=== PATIENT | female | born 1960 ===

== ENCOUNTER 2018-11-22 15:11 | Inpatient (IN) | payer SELFPAY ==
[2018-11-22 15:18] VITALS: BP 143/60; PULSE 89; RESP 16; TEMP 36.6; O2SAT 97; BMI 30.9
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
[2018-11-22 15:45] LABS: Add Manual Diff / Slide Review NO; Basophils Absolute Auto 0 /uL (0-100); Basophils Percent Auto 0.2 % (0-2); Eosinophils Absolute Auto 200 /uL (0-450); Eosinophils Percent Auto 1.5 % (2-4); Hematocrit 37.5 % (36-46); Hemoglobin 12.2 g/dL (12.0-16.0); Lymphocytes Absolute Auto 2400 /uL (1100-4500); Lymphocytes Percent Auto 19.5 % (25-40); Mean Corpuscular HGB Conc 32.7 % (30-36); Mean Corpuscular Hemoglobin 28.2 PG (26-34); Mean Corpuscular Volume 86.4 fL (80-100); Monocytes Absolute Auto 1000 /uL (0-900); Monocytes Percent Auto 8.4 % (3-14); Neutrophils Absolute Auto 8500 /uL (1500-7000); Neutrophils Percent Auto 70.4 % (50-75); Platelet Count 236 X10^3/uL (150-400); Red Blood Cell Count 4.34 X10^6/uL (4.0-5.2); Red Cell Distribution Width 12.4 % (11.6-14.8); White Blood Cell Count 12.1 X10^3/uL (4.5-11.0)
[2018-11-22 16:00] VITALS: BP 153/75; PULSE 75; RESP 18; TEMP 36.6
[2018-11-22 16:00] LABS: Blood Urea Nitrogen 12 mg/dL (7-17); C-Reactive Protein Quant 5.8 mg/dL (<1.0); Calcium 9.1 mg/dL (8.4-10.2); Carbon Dioxide 26 mmol/L (22-32); Chloride 100 mmol/L (98-107); Estimated Glomerular Filt Rate > 60.0 mL/min (>60); Glucose 104 mg/dL (80-110); HEMOLYSIS 24 (0-50); Potassium 3.5 mmol/L (3.4-5.1); Sodium 137 mmol/L (137-145)
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
[2018-11-22] MEDS: AMPICILLIN/SULBACTAM 3 GM 3 GM in SODIUM CHLORIDE 0.9% 100 ML IV ×2 (16:04→22:05)
[2018-11-22 16:05] LABS: Erythrocyte Sedimentation Rate 78 MM/HR (0-20)
[2018-11-22 16:40] VITALS: BMI 30.2
[2018-11-22] MEDS: HYDROCODONE/ACET 5/325 TABLET 1 TAB PO ×2 (16:53→22:05)
[2018-11-22] MEDS: DEXTROSE 5%-0.9% NS 1,000 ML 60 ML IV (17:13)
[2018-11-22] MEDS: HYDROMORPHONE 0.5 MG INJ IV ×2 (17:17→22:55)
[2018-11-22 18:12] VITALS: O2SAT 98
[2018-11-22 20:01] VITALS: BP 135/69; PULSE 72; RESP 16; TEMP 36.6; O2SAT 96
[2018-11-22] MEDS: ONDANSETRON 4 MG/2 ML INJ IV (20:13)
[2018-11-22 23:30] VITALS: BP 133/74; PULSE 73; RESP 17; TEMP 36.9; O2SAT 96
[2018-11-22 23:37] VITALS: O2SAT 95
[2018-11-23] VITALS (16 sets, daily range): BP systolic 96–150; BP diastolic 42–77; PULSE 68–90; RESP 16–20; TEMP 36.7–38.2; O2SAT 93–98; BMI 30.2
[2018-11-23] MEDS: ONDANSETRON 4 MG/2 ML INJ IV ×2 (02:14→08:39)
[2018-11-23] MEDS: AMPICILLIN/SULBACTAM 3 GM 3 GM in SODIUM CHLORIDE 0.9% 100 ML IV ×3 (04:08→18:20)
[2018-11-23] MEDS: HYDROCODONE/ACET 5/325 TABLET 1 TAB PO (04:09)
[2018-11-23 05:37] LABS: Add Manual Diff / Slide Review NO; Basophils Absolute Auto 0 /uL (0-100); Basophils Percent Auto 0.3 % (0-2); Eosinophils Absolute Auto 100 /uL (0-450); Eosinophils Percent Auto 1.3 % (2-4); Hematocrit 33.9 % (36-46); Hemoglobin 11.1 g/dL (12.0-16.0); Lymphocytes Absolute Auto 1800 /uL (1100-4500); Lymphocytes Percent Auto 16.8 % (25-40); Mean Corpuscular HGB Conc 32.6 % (30-36); Mean Corpuscular Hemoglobin 28.2 PG (26-34); Mean Corpuscular Volume 86.5 fL (80-100); Monocytes Absolute Auto 900 /uL (0-900); Monocytes Percent Auto 7.9 % (3-14); Neutrophils Absolute Auto 7900 /uL (1500-7000); Neutrophils Percent Auto 73.7 % (50-75); Platelet Count 220 X10^3/uL (150-400); Red Blood Cell Count 3.92 X10^6/uL (4.0-5.2); Red Cell Distribution Width 12.6 % (11.6-14.8); White Blood Cell Count 10.7 X10^3/uL (4.5-11.0)
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
[2018-11-23] MEDS: HYDROMORPHONE 0.5 MG INJ IV ×2 (08:04→14:58)
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
--- NOTE | 2018-11-23 17:09 | PC.NURSE ---
Addendum entered by Payal Lynch R.N. 11/23/18 22:54: 2145 - SBA to bathroom. Pt reports mild lightheadedness with standing. Reinforced safety. Steady gait. Positioned for comfort. Right hand elevated on pillow. Ice pack in place. Snack provided. Pt denies nausea. Pt reports pain 9 of 10. Apap and percolone given as ordered. Call light in reach of left hand. Bed alarm on. Addendum entered by Payal Lynch R.N. 11/23/18 21:39: 1945 - Pt returned to room from PACU. Drowsy but appropriate. Drsg CDI. Hand elevated on pillow, Ice pack in place. Pt denies pain at this time. Reinforced call light use. Call light in reach of left hand. Original Note: 1630 - Pt daughter called to check pt status. Pt gave verbal permission for me to speak to her daughter. Reviewed treatment plan and transferred call to care management for further clarification on forms provided to pt. 1700 - OR staff here to transport pt. Pt alert, requests to take phone with her, rings taped. IV s.l. 1600 IV abx sent with OR staff. Call placed to Pt daughter notifying her of transport to pre-op area per request.
[2018-11-23] MEDS: LACTATED RINGERS 1,000 ML 42 ML IV (17:30)
--- NOTE | 2018-11-23 18:13 | PM.PREOP ---
Pre-operative Note Interval Note History & Physical reviewed/Exam performed by Physician: Yes Changes to H&P: No
[2018-11-23] MEDS: BUPIVACAINE 0.25% W/ EPI (PF) 10 ML VIAL INJ (18:45)
--- NOTE | 2018-11-23 18:54 | PM.OP.1 ---
Operative Date/Time/Diagnoses Date of procedure: 11/23/18 Time of procedure: 18:15 Pre-op diagnosis: Right middle finger infection Post-op diagnosis: same Procedure & Clinicians Procedure: Irrigation and debridement of the right middle finger Same procedure as scheduled: Yes Indications: Right middle finger infection Surgeon: Héctor Steele Click Yes if Unassisted: Yes Anesthesia Type: General Operative Notes Findings: Significant purulence involving the dorsal aspect of the right middle finger. No sign of any joint involvement. No sign of any bony reaction. Purulence was superficial to the extensor mechanism. Closure Type: primary Specimen(s): other (Fluid sent for Gram stain as well as cultures and sensitivity) Estimated Blood Loss (mL): 0 Blood products transfused: none Tourniquet time (min): 20 Procedure in detail: On date of service, patient was met in the holding area where the operative site was signed and witnessed by the OR staff. Surgeries once again discussed with the patient in remaining questions concerns she had were answered fully. Patient was taken back to the operating theater and placed on the operating table in a supine position. Time-out was performed verifying patient's name procedure and operative site. Great care was taken to ensure that all bony prominences were properly padded and a well-padded tourniquet was placed up along the upper extremities. Patient's right arm was prepped and draped in the normal sterile fashion. Elevation was used to exsanguinate the limb. Esmarch was used proximal to the infection and the tourniquet was turned up to 250 mm of mercury. Fifteen blade was used to incise through skin. Once the incision was made there was copious purulence mainly centered over the PIP joint. This purulent fluid was swabbed and sent to microbiology. Fifteen blade was used to continue with deeper dissection through the fascial tissue. This gave us good visualization of the extensor mechanism. Quite a bit of purulence involving the entire dorsal aspect of the middle finger. But not going as far as the MCP joint. And not going as distal as the DIP joint. Copious irrigation was performed to irrigate out the finger. A combination of rongeur and curette were used to debride the finger. There was some necrotic tissue involved in the superficial tissue. But the extensor tendon seemed to be free of any changes. After the debridement with the curette repeat irrigation was performed. Once we felt we had completely cleaned out the finger it was loosely closed with nylon. Packing material was placed to keep the wound partially open. The finger was then dressed and a splint was applied. Patient was extubated and taken to the PACU in stable condition. Complications: none Condition: stable Disposition: PACU Plan for aftercare: Wound care consult has been placed. Patient's cultures will need to be followed up on. Patient can be discharged home once the infection seems to be cleared.
[2018-11-23] MEDS: LACTATED RINGERS 1,000 ML 125 ML IV (20:02)
[2018-11-23] MEDS: ACETAMINOPHEN 325 MG TABLET 975 MG PO (21:55)
[2018-11-23] MEDS: OXYCODONE IR 5 MG TABLET PO (21:55)
[2018-11-23] MEDS: DOCUSATE 100 MG CAPSULE PO (21:55)
[2018-11-24] VITALS (9 sets, daily range): BP systolic 110–150; BP diastolic 57–90; PULSE 55–70; RESP 16–18; TEMP 36.3–36.9; O2SAT 96–98
[2018-11-24] MEDS: AMPICILLIN/SULBACTAM 3 GM 3 GM in SODIUM CHLORIDE 0.9% 100 ML IV ×3 (02:00→18:42)
[2018-11-24] MEDS: LACTATED RINGERS 1,000 ML 125 ML IV (05:02)
[2018-11-24 05:53] LABS: Add Manual Diff / Slide Review NO; Basophils Absolute Auto 0 /uL (0-100); Basophils Percent Auto 0.1 % (0-2); Eosinophils Absolute Auto 0 /uL (0-450); Hematocrit 33.5 % (36-46); Hemoglobin 11.1 g/dL (12.0-16.0); Lymphocytes Absolute Auto 1100 /uL (1100-4500); Lymphocytes Percent Auto 10.1 % (25-40); Mean Corpuscular HGB Conc 33.1 % (30-36); Mean Corpuscular Hemoglobin 28.7 PG (26-34); Mean Corpuscular Volume 86.8 fL (80-100); Monocytes Absolute Auto 200 /uL (0-900); Monocytes Percent Auto 2.2 % (3-14); Neutrophils Absolute Auto 9300 /uL (1500-7000); Neutrophils Percent Auto 87.6 % (50-75); Platelet Count 240 X10^3/uL (150-400); Red Blood Cell Count 3.86 X10^6/uL (4.0-5.2); Red Cell Distribution Width 12.4 % (11.6-14.8); White Blood Cell Count 10.7 X10^3/uL (4.5-11.0)
[2018-11-24 06:00] LABS: Alanine Aminotransferase 34 IU/L (9-52); Albumin 3.7 g/dL (3.5-5.0); Alkaline Phosphatase 131 U/L (38-126); Aspartate Aminotransferase 33 IU/L (14-36); BUN Creatinine Ratio 21.7 (6-22); Bilirubin Total 0.7 mg/dL (0.2-1.3); Blood Urea Nitrogen 13 mg/dL (7-17); Calcium 8.9 mg/dL (8.4-10.2); Carbon Dioxide 26 mmol/L (22-32); Chloride 102 mmol/L (98-107); Estimated Glomerular Filt Rate > 60.0 mL/min (>60); Globulin 3.6 g/dL (1.7-4.1); Glucose 166 mg/dL (80-110); HEMOLYSIS < 15 (0-50); Magnesium 1.8 mg/dL (1.6-2.3); Potassium 3.9 mmol/L (3.4-5.1); Sodium 137 mmol/L (137-145); Total Protein 7.3 g/dL (6.3-8.2)
[2018-11-24 06:58] LABS: Procalcitonin < 0.05 ng/mL (<0.5)
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
[2018-11-24] MEDS: ACETAMINOPHEN 325 MG TABLET 975 MG PO ×3 (08:11→21:12)
[2018-11-24] MEDS: OXYCODONE IR 5 MG TABLET PO (08:11)
[2018-11-24] MEDS: DOCUSATE 100 MG CAPSULE PO ×2 (08:12→21:12)
--- NOTE | 2018-11-24 09:36 | PT.IPTN ---
Current Diagnoses Other synovitis and tenosynovitis, right hand (11/22/18) Surgery Performed Operation Date: 11/23/18 17:00 Actual Procedures p I&D Middle finger(Right) - Héctor Steele MD Received Physical Therapy order. Reviewed chart. Noted pt has been up in room with nursing. Since pt is here for finger I&D will request Occupational Therapy order at this time. Will discharge Physical Therapy due to no mobility impairments. Her nurse reports the physician does want finger ROM at this time.
--- NOTE | 2018-11-24 10:34 | OT.IP.TRT ---
Current Diagnoses Other synovitis and tenosynovitis, right hand (11/22/18) Surgery Performed Operation Date: 11/23/18 17:00 Actual Procedures p I&D Middle finger(Right) - Héctor Steele MD Occupational Therapy Treatment Note M3 OT- IP Subjective and Pain Start: 11/24/18 10:21 Freq: Status: Active Protocol: Document 11/24/18 10:23 [facility] (Rec: 11/24/18 10:34 [facility] [id number]) OT- Subjective Occupational Therapy Visit Type Type Administrative Note Notes Pt received OT eval, pt had I and D to right middle finger and now bandaged with splint on. Pt's daughter to be home to assist for all needs. Pt given suggestions of wearing gowns at home and having a shower chair for safety at home. Pt moving independently in the room, however told pt to call for assist as attached to the IV. Pt able to move 1, 2,4,5 digits on her own for right ROM. Minimal movements to 3rd digit due to bandage and splint. Pt good understanding to elevate her arm upright. Therefore at this time no further OT needed.
--- NOTE | 2018-11-24 12:55 | PM.PNPO.1 ---
Subjective Date Patient Seen: 11/24/18 Time Patient Seen: 12:55 Interval history: Patient states her pain is mild. Denies fever chills. No nausea vomiting. Otherwise without complaints. Exam Vital Signs (past 8 hours): - 11/24/18 05:41 11/24/18 07:25 11/24/18 12:25 Temperature 98.0 F 97.4 F L 97.7 F Pulse Rate 68 55 L 63 Respiratory Rate 16 16 16 Blood Pressure 146/90 H 136/68 133/71 Pulse Oximetry 97 98 97 Oxygen Delivery Method Room Air Oxygen Flow Rate 0 Narrative Exam Narrative: Pleasant 58-year-old female resting comfortably in bed in no apparent distress. The dressing is clean, dry and intact. Sensations intact distal right upper extremity. Motor functions intact distally. Objective Labs Result Diagrams: 11/24/18 05:04 11/24/18 05:04 Labs: Laboratory Results - last 24 hr 11/24/18 11/24/18 11/24/18 05:04 05:04 05:04 WBC 10.7 RBC 3.86 L Hgb 11.1 L Hct 33.5 L MCV 86.8 MCH 28.7 MCHC 33.1 RDW 12.4 Plt Count 240 Neut % (Auto) 87.6 H Lymph % (Auto) 10.1 L Meagher % (Auto) 2.2 L Eos % (Auto) 0.0 L Baso % (Auto) 0.1 Neut # (Auto) 9300 H Lymph # (Auto) 1100 [place]agher # (Auto) 200 Eos # (Auto) 0 Baso # (Auto) 0 Sodium 137 Potassium 3.9 Chloride 102 Carbon Dioxide 26 BUN 13 Creatinine 0.60 Estimated GFR > 60.0 BUN/Creatinine Ratio 21.7 Glucose 166 H Calcium 8.9 Magnesium 1.8 Total Bilirubin 0.7 AST 33 ALT 34 Alkaline Phosphatase 131 H Total Protein 7.3 Albumin 3.7 Globulin 3.6 Albumin/Globulin Ratio 1.0 Procalcitonin < 0.05 [facility] CLIA ID [id number] [address] [place] [address] RUN DATE: 11/24/18 Specimen Inquiry PAGE 1 RUN TIME: 1258 Name: Vikki Steen Age/Sex: 58/F Attend Dr: Abbie Mckeon MD Unit#: [id number] : 1960Location: AC 218-1 Re11/22/18 Disch: Status: ADM IN SPEC #: [id number] CHANDLER: 11/23/18 STATUS: RES REQ #: [id number] SPDESC: Abscess RECD: 11/23/[address]: Héctor Steele MD SOURCE: FINGER ENTR: 11/23/[address]: Abbie Mckeon MD FAX TO: ORDERED: WOUND Cx and GS COMMENTS: Comment right 3rd digit, culture/sensitivity/gram stain Procedure Result Verified Site Gram Stain Final 11/23/18 White blood cells Few poly WBCs Gram Positive Cocci 4+ Gram Positive Rods 1+ Aerobic Culture for wounds Preliminary 11/24/18-1012 Group A Strep pos Organism 1 Strep pyogenes (grp a) Growth MODERATE Action to follow Further Workup Upon Request Called To: [facility]IE Anaerobic Culture Preliminary Assessment & Plan Post-op Postoperative Procedures Operation Date: 11/23/18 17:00 Actual Procedures Side Surgeon p I&D Middle finger Right Héctor Steele MD Postop day 1 status post irrigation debridement right middle finger. Final culture is pending. Patient will have wound Care consultation. Quality VTE Deep Vein Thrombosis/Pulmonary Embolism Present on Admission: No
--- NOTE | 2018-11-24 13:00 | P.PN_ITS ---
Subjective Date Patient Seen: 11/24/18 Time Patient Seen: 12:55 Interval history: Patient states her pain is mild. Denies fever chills. No nausea vomiting. Otherwise without complaints. Exam Vital Signs (past 8 hours): - 11/24/18 05:41 11/24/18 07:25 11/24/18 12:25 Temperature 98.0 F 97.4 F L 97.7 F Pulse Rate 68 55 L 63 Respiratory Rate 16 16 16 Blood Pressure 146/90 H 136/68 133/71 Pulse Oximetry 97 98 97 Oxygen Delivery Method Room Air Oxygen Flow Rate 0 Narrative Exam Narrative: Pleasant 58-year-old female resting comfortably in bed in no apparent distress. The dressing is clean, dry and intact. Sensations intact distal right upper extremity. Motor functions intact distally. Objective Labs Result Diagrams: 11/24/18 05:04 11/24/18 05:04 Labs: Laboratory Results - last 24 hr 11/24/18 11/24/18 11/24/18 05:04 05:04 05:04 WBC 10.7 RBC 3.86 L Hgb 11.1 L Hct 33.5 L MCV 86.8 MCH 28.7 MCHC 33.1 RDW 12.4 Plt Count 240 Neut % (Auto) 87.6 H Lymph % (Auto) 10.1 L [place] % (Auto) 2.2 L Eos % (Auto) 0.0 L Baso % (Auto) 0.1 Neut # (Auto) 9300 H Lymph # (Auto) 1100 [place] # (Auto) 200 Eos # (Auto) 0 Baso # (Auto) 0 Sodium 137 Potassium 3.9 Chloride 102 Carbon Dioxide 26 BUN 13 Creatinine 0.60 Estimated GFR > 60.0 BUN/Creatinine Ratio 21.7 Glucose 166 H Calcium 8.9 Magnesium 1.8 Total Bilirubin 0.7 AST 33 ALT 34 Alkaline Phosphatase 131 H Total Protein 7.3 Albumin 3.7 Globulin 3.6 Albumin/Globulin Ratio 1.0 Procalcitonin < 0.05 [facility] CLIA ID [id number] [address] [place] [address] RUN DATE: 11/24/18 Specimen Inquiry PAGE 1 RUN TIME: 1258 Name: Vikki Steen Age/Sex: 58/F Attend Dr: Abbie Mckeon MD Unit#: [id number] : 1960Location: AC 218-1 Re11/22/18 Disch: Status: ADM IN SPEC #: [id number] CHANDLER: 11/23/18 STATUS: RES REQ #: [id number] SPDESC: Abscess RECD: 11/23/[address]: Héctor Steele MD SOURCE: FINGER ENTR: 11/23/[address]: Abbie Mckeon MD FAX TO: ORDERED: WOUND Cx and GS COMMENTS: Comment right 3rd digit, culture/sensitivity/gram stain Procedure Result Verified Site Gram Stain Final 11/23/182032 White blood cells Few poly WBCs Gram Positive Cocci 4+ Gram Positive Rods 1+ Aerobic Culture for wounds Preliminary 11/24/18- 1012 Group A Strep pos Organism 1 Strep pyogenes (grp a) Growth MODERATE Action to follow Further Workup Upon Request Called To: [facility]UGIE Anaerobic Culture Preliminary Assessment & Plan Post-op Postoperative Procedures Operation Date: 11/23/18 17:00 Actual Procedures Side Surgeon p I&D Middle finger Right Héctor Steele MD Postop day 1 status post irrigation debridement right middle finger. Final culture is pending. Patient will have wound Care consultation. Quality VTE Deep Vein Thrombosis/Pulmonary Embolism Present on Admission: No
--- NOTE | 2018-11-24 14:15 | OT.IP.TRT ---
Current Diagnoses Other synovitis and tenosynovitis, right hand (11/22/18) Surgery Performed Operation Date: 11/23/18 17:00 Actual Procedures p I&D Middle finger(Right) - Héctor Steele MD Occupational Therapy Treatment Note M3 OT- IP Subjective and Pain Start: 11/24/18 10:21 Freq: Status: Active Protocol: Document 11/24/18 10:23 [facility] (Rec: 11/24/18 10:34 [facility] [id number]) OT- Subjective Occupational Therapy Visit Type Type Administrative Note Notes Pt received OT eval, pt I and D to right middle finger and now have bandaged with splint on. Pt's daughter to be home to assist for all needs. Pt given suggestions of wearing gowns at home and having a shower chair for safety at home. Pt moving independently in the room, however told pt to call for assist as attached to the IV. Pt able to move 1, 2,4,5 digits on her own for ROM and encouraged to actively move to help decrease swelling. Minimal movement to 3rd digit due to bandage, packing and splint. Awaiting wound care to see pt and also for more specific orders for pt needs from physician, nursing already placed call. Pt good understanding to elevate her arm upright. Pt good awareness not to more 3rd digit too much as still has sutures in her hand. Pt currently able to wiggle her 3rd digit within the bandages as tolerated. Therefore at this time no further OT needed until more clarification stated by surgeon. Recommend that pt may need to see hand therapist on outpt basis as pt's finger heals and if physician deems necessary to prevent from diaz.
--- NOTE | 2018-11-24 14:19 | PC.NURSE ---
1400 left message for Peterson Pelayo on his cell ph regarding orders for the POD#1 orders,/dressing change. OT unable to do any hand therapy w/o drsg removal. Wnd care clinic called, will see Pt today, after 4 PM. OT may already be gone for the day.
--- NOTE | 2018-11-24 19:16 | PC.NURSE ---
Evening note: Vikki resting in bed. Ox3 and situation. VS stable, afebrile. Wound Care Dr & AIME from [facility] here to change drsg. Splint drsg is CDI. No wound orders written by Dr to nursing staff re: drsg changes? Patient under impression that Dr Steele would round tonight. She expressed that she does not understand why she cannot just go home. I explained that per MD & PA notes, we are still awaiting final wound culture & sensitivity and that there are no orders to DC home yet. I explained how it is normal procedure for cellulitis/infection that the Dr will want her to have a certain # of IV antibiotic doses & to have final wound culture back before discharging patient. She expressed understanding. She rates right hand pain 2/10 and denies need for pain medication. She denies other concerns or needs at this time, I instructed her to use call button for any needs/concerns.
[2018-11-25] MEDS: AMPICILLIN/SULBACTAM 3 GM 3 GM in SODIUM CHLORIDE 0.9% 100 ML IV ×2 (02:17→09:54)
[2018-11-25 05:04] VITALS: BP 137/77; PULSE 61; RESP 17; TEMP 37; O2SAT 98
[2018-11-25 07:00] VITALS: O2SAT 97
--- NOTE | 2018-11-25 07:56 | PC.NURSE ---
Wound Care Nurse Consult Note with Dr. Semaj Florez in bed with friends and family at her bedside. She was eating dinner and visiting with company. Her Right 3rd Finger in bandage with gauze and supported with a palm splint held in place with a small 3 inch nena wrap. I removed the nena wrap splint and gauze dressing. There was old dry blood on the bandage and stuck to her incision so I used Normal Saline to soak the bandage free. She also had xeroform gauze over the incision line. The incision line is macerated and the sutures are not approximating well. There is some xeroform gauze packed into the wound under the incision line so that it fills part of the tunnel of this wound. ( packed proximally, goes under the sutures and come out distally) I cleaned the wound with Normal Saline, pat dry and placed Alginate over the incision then gauze, roll gauze, palm splint and secured the splint with gauze and tape. We did not remove the xeroform packing gauze. We will call Dr. Steele tomorrow (today November 25, 2018) with a plan for wound care as most likely we will [facility]. The Right 3rd Finger incision measures 5.5 x 0.3 cm. Depth was not assessed as wound bed was not visualized because we did not remove xeroform packing.
[2018-11-25] MEDS: DOCUSATE 100 MG CAPSULE PO (08:03)
[2018-11-25] MEDS: ACETAMINOPHEN 325 MG TABLET 975 MG PO ×2 (08:03→14:38)
--- NOTE | 2018-11-25 08:34 | PM.PNPO.1 ---
Subjective Date Patient Seen: 11/25/18 Time Patient Seen: 08:34 Interval history: Patient's pain is been [id number] this morning. Denies fever chills. No nausea vomiting. Patient is anxious to go home. Otherwise without complaints. Exam Vital Signs (past 8 hours): - 11/25/18 05:04 11/25/18 07:00 Temperature 98.6 F Pulse Rate 61 Respiratory Rate 17 Blood Pressure 137/77 Pulse Oximetry 98 97 Oxygen Delivery Method Room Air Oxygen Flow Rate 0 Narrative Exam Narrative: Pleasant 58-year-old female resting comfortably in bed in no apparent distress. Dressing and splint are intact. Dressing is clean and dry. I did not remove the dressing today as wound care looked at yesterday. Neurovascular status is intact distally. Objective Labs Result Diagrams: 11/24/18 05:04 11/24/18 05:04 Labs: [facility] CLIA ID [id number] [address] [place] [address] RUN DATE: 11/25/18 Specimen Inquiry PAGE 1 RUN TIME: 834 Name: Vikki Steen Age/Sex: 58/F Attend Dr: Abbie Mckeon MD Unit#: [id number] : 1960Location: AC 218-1 Re11/22/18 Disch: Status: ADM IN SPEC #: [id number] CHANDLER: 11/23/18 STATUS: RES REQ #: [id number] SPDESC: Abscess RECD: 11/23/[address]: Héctor Steele MD SOURCE: FINGER ENTR: 11/23/[address]: Abbie Mckeon MD FAX TO: ORDERED: WOUND Cx and GS COMMENTS: Comment right 3rd digit, culture/sensitivity/gram stain Procedure Result Verified Site Gram Stain Final 11/23/18 White blood cells Few poly WBCs Gram Positive Cocci 4+ Gram Positive Rods 1+ Aerobic Culture for wounds Final 11/25/18 Group A Strep pos Skin Indira Moderate growth - Mixed skin indira Organism 1 Strep pyogenes (grp a) Growth MODERATE Action to follow Further Workup Upon Request Called To: [facility] Anaerobic Culture Preliminary 11/25/18 Mixed anaerobes Mixed anaerobes, identification on request only Organism 1 Strep pyogenes (grp a) Growth HEAVY Assessment & Plan Post-op Postoperative Procedures Operation Date: 11/23/18 17:00 Actual Procedures Side Surgeon p I&D Middle finger Right Héctor Steele MD Postop day 2 status post irrigation and debridement of right middle finger. Per wound care note they will be contacting Dr. Steele regarding packing change. Patient can be discharged when medically stable per hospitalist. Discharge antibiotics per hospitalist. Patient will need wound care follow-up as an outpatient either at [facility] or at [facility]. Quality VTE Deep Vein Thrombosis/Pulmonary Embolism Present on Admission: No
--- NOTE | 2018-11-25 08:39 | P.PN_ITS ---
Subjective Date Patient Seen: 11/25/18 Time Patient Seen: 08:34 Interval history: Patient's pain is been [id number] this morning. Denies fever chills. No nausea vomiting. Patient is anxious to go home. Otherwise without complaints. Exam Vital Signs (past 8 hours): - 11/25/18 05:04 11/25/18 07:00 Temperature 98.6 F Pulse Rate 61 Respiratory Rate 17 Blood Pressure 137/77 Pulse Oximetry 98 97 Oxygen Delivery Method Room Air Oxygen Flow Rate 0 Narrative Exam Narrative: Pleasant 58-year-old female resting comfortably in bed in no apparent distress. Dressing and splint are intact. Dressing is clean and dry. I did not remove the dressing today as wound care looked at yesterday. N eurovascular status is intact distally. Objective Labs Result Diagrams: 11/24/18 05:04 11/24/18 05:04 Labs: [facility] CLIA ID [id number] [address] [place] [address] RUN DATE: 11/25/18 Specimen Inquiry PAGE 1 RUN TIME: 834 Name: Vikki Steen Age/Sex: 58/F Attend Dr: Abbie Mckeon MD Unit#: [id number] : 1960Location: AC 218-1 Re11/22/18 Disch: Status: ADM IN SPEC #: [id number] CHANDLER: 11/23/18 STATUS: RES REQ #: [id number] SPDESC: Abscess RECD: 11/23/[address]: Héctor Steele MD SOURCE: FINGER ENTR: 11/23/[address]: Abbie Mckeon MD FAX TO: ORDERED: WOUND Cx and GS COMMENTS: Comment right 3rd digit, culture/sensitivity/gram stain Procedure Result Verified Site Gram Stain Final 11/23/182032 White blood cells Few poly WBCs Gram Positive Cocci 4+ Gram Positive Rods 1+ Aerobic Culture for wounds Final 11/25/18811 Group A Strep pos Skin Indira Moderate growth - Mixed skin indira Organism 1 Strep pyogenes (grp a) Growth MODERATE Action to follow Further Workup Upon Request Called To: [facility] Anaerobic Culture Preliminary 06/12/19- 0814 Mixed anaerobes Mixed anaerobes, identification on request only Organism 1 Strep pyogenes (grp a) Growth HEAVY Assessment & Plan Post-op Postoperative Procedures Operation Date: 11/23/18 17:00 Actual Procedures Side Surgeon p I&D Middle finger Right Héctor Steele MD Postop day 2 status post irrigation and debridement of right middle finger. Per wound care note they will be contacting Dr. Steele regarding packing change. Patient can be discharged when medically stable per hospitalist. Discharge antibiotics per hospitalist. Patient will need wound care follow-up as an o utpatient either at [facility] or at [facility]. Quality VTE Deep Vein Thrombosis/Pulmonary Embolism Present on Admission: No
[2018-11-25 09:00] VITALS: BP 137/75; PULSE 62; RESP 18; TEMP 36.4; O2SAT 96
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
--- NOTE | 2018-11-25 11:24 | CM.DPC ---
Addendum entered by GIL Che 11/25/18 13:57: ADD: SW met bedside with pt, MD, Nathalie Wound RN, and RN and discussed d/c plan of home to Dtr's house on [facility]. Pt states she plans to mostly stay at her Dtr's house through the summer more than at her house in [place] and therefore she is agreeable to follow up with Dr. Steele and [facility]ound [facility] if needed as well as even establishing PCP her in [place] if needed. Pt states that she had a scheduled appointment with someone connected to her son's school to get set up for medical insurance for herself as well as her son but she had to cancel as she was here at the hospital but she plans to reschedule that appointment for as soon as possible in order to get medical insurance. Plan with the team and pt was to focus on follow up appointment with Dr. Steele after d/c prior to establishing with PCP until pt gets set up with Medical insurance. Pt requesting support with confirming Dr. Steele's request for follow up appointment for Fri11/27/18 with him at his office and CHON Marshall kindly calling to confirm f/u appointment for Friday. Pt's Dtr to provide transport home to her house for the pt later this afternoon. GIL Che Original Note: DCP Home Per MD, pt stable for d/c home on oral meds today pending final assessment by Wound Care MD regarding wound packing recommendations and discussion with Ortho. Pt was provided with a [facility] application and pt completed it and CHON Marshall kindly delivered it to admissions counselors to review. Plan: Patient stable for d/c home later today with oral medications and follow up appointments for wound care and orthopedic follow up. No SW needs at this time. GIL Che
--- NOTE | 2018-11-25 13:44 | PC.NURSE ---
Wound Nurse Consult Note Dr. Cha has a discussion with Dr. Flynn this morning regarding wound care and follow up for Vikki. The plan is to have wound care change the packing today and Dr. Steele will follow Vikki's wound care. I saw on my way up to see Vikki and discussed the plan for Vikki to follow up with Dr. Steele's office this Friday, November [address] Steele will follow patient as patient does not currently have any medical insurance. Shruthi, from Care Management and Mariam came into the patient's room with Dr. Flynn. The plan is to have Vikki stay with her daughter in [place] and see Dr. Steele and possibly follow up with [facility]. I removed the xeroform packing form the wound and replaced the packing with two pieces of Nu-Gauze ribbon gauze moist with Normal Saline. Then I placed Silver Alginate over the suture line and gauze. Secured with roll gauze and stockinette. The polly-wound continues to be macerated and I feel the sutures are not helping the wound to approximate and feel that they may need to be removed so the wound can heal with secondary intention. There was a moderate amount of serosanguenous drainage. Her finger and hand has edema, warm to touch and has erythema.
[2018-11-25 15:30] VITALS: BP 130/86; PULSE 55; RESP 16; TEMP 36.3; O2SAT 100
== END 2018-11-25 16:00 | disposition home or self-care (01) | DRG 513 ==
LOC: ED 15:51 → AC 16:03
PROVIDERS: Internal Medicine; Orthopaedic Surgery; Admitting Provider Family Medicine; Emergency Provider Emergency Medicine; Visit Provider Family Medicine
PROC: 0JBJ0ZZ Excision of Right Hand Subcutaneous Tissue and Fascia, Open Approach (ICD-10-PCS; principal; 2018-11-23 17:00)
DX: M65.841 Other synovitis and tenosynovitis, right hand (principal); I96 Gangrene, not elsewhere classified; L03.011 Cellulitis of right finger; S61.252A Open bite of right middle finger without damage to nail, initial encounter; W50.3XXA Accidental bite by another person, initial encounter; Y92.810 Car as the place of occurrence of the external cause; B95.0 Streptococcus, group A, as the cause of diseases classified elsewhere
CPT/HCPCS: 36415; 36591; 80048; 80053; 83735; 84145; 85025; 85651; 86140; 87040; 87070; 87075; 87077; 87147; 87205; 94760; 96365; 99283; 99284; J0295; J1100; J1170; J2405; J2704; J3010